=== PATIENT | female | born 1985 | race Caucasian/White ===

== ENCOUNTER → 2017-06-05 | Outpatient (CLI) | payer BC ==
[~2017-06-05] MED LIST: RXPROM25S PR; SULTRIDS PO
[2017-06-07 12:18] LABS: HPV Genotype 16 Not Detected (NOTDET); HPV Genotype 18 Not Detected (NOTDET)
[2017-06-11 10:45] LABS: HPV High Risk Other Not Detected (NOTDET)
== END ==
LOC: LAB 14:32
PROVIDERS: Registered Nurse Community Health
DX: Z12.4 Encounter for screening for malignant neoplasm of cervix (principal)
CPT/HCPCS: 87624; G0123

== ENCOUNTER 2018-12-20 10:58 | Emergency (ER) | payer OTHER ==
[~2018-12-20] VITALS: Ht 167.6 cm; Wt 68.0 kg
[~2018-12-20 10:58] MED LIST changes: +Norco 5-325 Ta1 EACH PO
[2018-12-20] MEDS ORDERED: CEPH500 PO (12:09)
[2018-12-20] MEDS ORDERED: HYDR1TAB94 PO (12:09)
[2018-12-20] MEDS ORDERED: Bactrim Ds Tab1 EACH PO (12:09)
== END 2018-12-20 12:28 | disposition home or self-care (01) ==
LOC: ER 10:58
DX: L02.413 Cutaneous abscess of right upper limb (principal); F17.200 Nicotine dependence, unspecified, uncomplicated
CPT/HCPCS: 10060; 99282-25

== ENCOUNTER 2019-02-24 10:52 | Emergency (ER) | payer OTHER ==
[~2019-02-24] VITALS: Ht 165.1 cm; Wt 68.0 kg
[~2019-02-24 10:52] MED LIST changes: +Bactrim Ds Tab1 EACH PO; +CEPH500 PO; +HYDR1TAB94 PO
== END 2019-02-24 13:28 | disposition home or self-care (01) ==
LOC: ER 10:52
DX: L02.413 Cutaneous abscess of right upper limb (principal); L03.113 Cellulitis of right upper limb; F17.200 Nicotine dependence, unspecified, uncomplicated
CPT/HCPCS: 10061; 99282-25